=== PATIENT | female | born 1995 | race Caucasian/White ===

== ENCOUNTER → 2016-09-20 | Outpatient (CLI) | payer OTHER ==
[2016-09-20 12:14] LABS: ANION GAP 10 MEQ/L (8-16); BLOOD UREA NITROGEN 16 MG/DL (7-18); CALCIUM LEVEL 9.3 MG/DL (8.5-10.1); CARBON DIOXIDE LEVEL 24 MEQ/L (21-32); CHLORIDE LEVEL 103 MEQ/L (98-107); CHOLESTEROL LEVEL 199 MG/DL (<200); CREATININE FOR GFR 0.98 MG/DL (0.55-1.02); GLUCOSE, FASTING 103 MG/DL (70-105); POTASSIUM SERUM 4.1 MEQ/L (3.5-5.1); SODIUM LEVEL 137 MEQ/L (136-145); TRIGLYCERIDES LEVEL 230 MG/DL (<150)
== END ==
LOC: M LAB 10:34
PROVIDERS: ATTEND Internal Medicine Cardiovascular Disease
DX: I10 Essential (primary) hypertension (principal)

== ENCOUNTER 2016-11-02 19:43 | Emergency (ER) | payer OTHER ==
[~2016-11-02] VITALS: Ht 165.1 cm; Wt 99.8 kg
[2016-11-02] MEDS ORDERED: KETOROLAC 30 MG/ML VIAL (J1885) IM ONE (21:30)
[2016-11-02] MEDS ORDERED: METHOCARBAMOL 1,000 MG/10 ML VIAL (J2800) IM ONE (21:30)
[2016-11-02] MEDS ORDERED: LODI400T PO (22:10)
[2016-11-02] MEDS ORDERED: ROBA500T PO (22:10)
[2016-11-02 22:34] VITALS: BP 149/100
== END 2016-11-02 22:35 | disposition home or self-care (01) ==
LOC: M ED 20:50
DX: S39.012A Strain of muscle, fascia and tendon of lower back, initial encounter (principal); X50.9XXA Other and unspecified overexertion or strenuous movements or postures, initial encounter; Y92.129 Unspecified place in nursing home as the place of occurrence of the external cause; Y93.89 Activity, other specified; Y99.0 Civilian activity done for income or pay; Z79.899 Other long term (current) drug therapy
CPT/HCPCS: 96372; 99282; J1885; J2800

== ENCOUNTER 2016-11-08 11:36 | Emergency (ER) | payer OTHER ==
[~2016-11-08] VITALS: Ht 165.1 cm; Wt 99.8 kg
[~2016-11-08 11:36] MED LIST: LODI400T PO; ROBA500T PO
[2016-11-08] MEDS ORDERED: HYDR12.55 PO (11:49)
[2016-11-08] MEDS ORDERED: LISI-542 PO (11:49)
[2016-11-08] MEDS ORDERED: KETOROLAC 30 MG/ML VIAL (J1885) IM ONE (12:00)
[2016-11-08 13:17] VITALS: BP 123/83
[2016-11-08] MEDS ORDERED: HYDR-3713 PO (13:27)
--- NOTE | 2016-11-08 13:56 | REP ---
Lumbar spine series: Five views. History: Low back pain. Findings: Five views of the lumbar spine show preserved vertebral body heights and normal alignment. Disc spaces are maintained. Pedicles and posterior elements are intact. Psoas margins are symmetric. Sacrum and SI joints are unremarkable. Impression: Negative lumbar spine series: No change from March 09, 2016 prior study. Signed by Darnell Vallejo MD 11/08/2016 05:37 P
== END 2016-11-08 13:38 | disposition home or self-care (01) ==
LOC: M ED 12:16
DX: G89.29 Other chronic pain (principal); M54.5 Low back pain; X50.9XXD Other and unspecified overexertion or strenuous movements or postures, subsequent encounter; Y92.129 Unspecified place in nursing home as the place of occurrence of the external cause; Y93.89 Activity, other specified; Y99.0 Civilian activity done for income or pay; Z51.89 Encounter for other specified aftercare; E66.9 Obesity, unspecified; Z79.899 Other long term (current) drug therapy
CPT/HCPCS: 72110; 81001; 81025; 96372; 99282; J1885; J3360

== ENCOUNTER 2016-12-18 07:45 | Outpatient (RCR) | payer OTHER ==
[~2016-12-18 07:45] MED LIST changes: +HYDR-3713 PO; +HYDR12.55 PO; +LISI-542 PO
== END 2016-12-23 ==
LOC: M PT 07:45
PROVIDERS: ATTEND Orthopaedic Surgery
DX: Z51.89 Encounter for other specified aftercare (principal); M54.5 Low back pain

== ENCOUNTER → 2018-11-12 | Outpatient (CLI) | payer OTHER ==
[2018-11-12 09:00] LABS: CHOLESTEROL RISK RATIO 4.589 (<5)
[2018-11-13 08:06] LABS: LDL DIRECT 113 mg/dL (0-99)
== END ==
LOC: M LAB 08:06
PROVIDERS: ATTEND Internal Medicine Cardiovascular Disease
DX: I10 Essential (primary) hypertension (principal); E66.8 Other obesity; G47.33 Obstructive sleep apnea (adult) (pediatric)

== ENCOUNTER → 2018-12-15 | Outpatient (CLI) | payer OTHER ==
--- NOTE | 2018-12-18 21:02 | SLEEPCENT ---
DATE OF PROCEDURE: 12/15/2018 ORDERED BY: Devorah Landry Nocturnal polysomnography was performed for evaluation of sleep physiology in this patient with nonrestorative sleep and longstanding hypertension. 8 hours and 7 minutes of data were reviewed. There were 458 minutes of sleep identified. Sleep latency was short at 4.5 minutes. Rapid eye movement (REM) latency was mildly prolonged at 119 minutes. Sleep architecture was good with four REM cycles. Overall sleep efficiency 95%. The electrocardiogram showed a sinus rhythm with an average heart rate of 68 beats per minute. EEG with essentially normal waveforms for awake and sleep. There were no focal events identified. There were only two respiratory events identified of 10 seconds in duration or greater for an apnea-hypopnea index well within normal limits at 0.3. Snoring was noted over the course of study and respiratory related arousals occurred 2.1 times per hour. There was some limb activity noted. No trains of events were seen. Limb movement arousal index was at the upper limits of normal at 5.2, and there were no oxygen desaturations. IMPRESSION: Nocturnal polysomnography with snoring.
== END ==
LOC: M SLEEP 19:35
PROVIDERS: ATTEND Nurse Practitioner Adult Health
DX: R06.83 Snoring (principal)

== ENCOUNTER 2019-05-30 16:10 | Emergency (ER) | payer OTHER ==
[~2019-05-30] VITALS: Ht 162.6 cm; Wt 77.3 kg
[2019-05-30] MEDS ORDERED: ACETAMINOPHEN TAB 650MG DOSE (2X325MG) PO ONE (17:15)
[2019-05-30] MEDS ORDERED: NORCO, ANEXSIA 5/325MG TABLET (HYDROcodone/ACETAMINOPHEN) PO ONE (17:15)
[2019-05-30] MEDS ORDERED: NORC1TAB7 PO (17:24)
[2019-05-30 17:32] VITALS: BP 144/99
--- NOTE | 2019-05-31 07:57 | REP ---
Fifth digit right foot four views: There is a fracture of the fifth digit proximal phalange shaft. There is no dislocation. Mineralization and joint spaces are normal. There are no calcifications or foreign bodies. Electronically Signed by Mario Whitehead MD 05/31/2019 07:49 A
== END 2019-05-30 17:35 | disposition home or self-care (01) ==
LOC: M ED 16:10
DX: S92.514A Nondisplaced fracture of proximal phalanx of right lesser toe(s), initial encounter for closed fracture (principal); W22.01XA Walked into wall, initial encounter; Y92.099 Unspecified place in other non-institutional residence as the place of occurrence of the external cause; Y93.9 Activity, unspecified; Y99.9 Unspecified external cause status; Z79.899 Other long term (current) drug therapy

== ENCOUNTER → 2019-07-31 | Outpatient (CLI) | payer OTHER ==
[~2019-07-31] MED LIST changes: +NORC1TAB7 PO
--- NOTE | 2019-07-31 09:06 | REP ---
FIRST TRIMESTER ULTRASOUND: Real-time sonographic evaluation of the gravid uterus performed. There is a single intrauterine gestation with an estimated gestational age 8 weeks 4 days based on crown-rump length of 20 mm, EDC 03/07/2020. heart rate 169 beats per minute. There is no subchorionic hemorrhage. No maternal adnexal region abnormalities are seen. Electronically Signed by Mario Sinclair MD 07/31/2019 03:49 P
== END ==
LOC: M RAD 06:42
PROVIDERS: ATTEND Nurse Practitioner Family
DX: Z32.01 Encounter for pregnancy test, result positive (principal)

== ENCOUNTER → 2019-09-21 | Outpatient (REF) | payer OTHER ==
[2019-09-21 13:30] LABS: INFLUENZA A AMPLIFICATION NEGATIVE (NEGATIVE); INFLUENZA B AMPLIFICATION NEGATIVE (NEGATIVE)
== END ==
LOC: M LAB REF 12:19
PROVIDERS: ATTEND Physician Assistant Medical
DX: J11.1 Influenza due to unidentified influenza virus with other respiratory manifestations (principal)

== ENCOUNTER 2019-10-28 17:23 | Emergency (ER) | payer OTHER ==
[~2019-10-28] VITALS: Ht 162.6 cm; Wt 89.9 kg
--- NOTE | 2019-10-28 18:47 | REPVR ---
PROCEDURE INFORMATION: Exam: US , Transvaginal Exam date and time: 10/28/2019 6:31 PM Age: 24 years old Clinical indication: Pain; Other: Lt adnexa; Gestational age or lmp: 8wks; ; Additional info: Ecotopic rule out? TECHNIQUE: Imaging protocol: Real-time transvaginal obstetrical ultrasound of the maternal pelvis and a first trimester with image documentation. Transvaginal imaging was used for better evaluation of the fetus and adnexa. COMPARISON: No relevant prior studies available. FINDINGS: GESTATION: Gestation: Intrauterine gestation including yolk sac and pole unremarkable. Heart rate: 113 bpm BIOMETRY: Clute-Rump length: 6 weeks 5 days using crown-rump length of 8 mm versus 7 weeks 4 days using LMP. MATERNAL: Right adnexa: Hypervascular hypoechoic solid process right ovary consistent with a corpus luteum. Otherwise unremarkable. IMPRESSION: Unremarkable 1st trimester gestation at 6 weeks 5 days based on current ultrasound measurements. Detailed structural survey can be performed between 19-20 weeks if clinically desired. Electronically signed by: Bill Zabala On 10/28/2019 18:47:06 PM
[2019-10-28 18:53] LABS: BASO % 0.4 % (0.0-1.0); EOS # 0.1 10^3/uL (0.0-0.5); EOS % 1.4 % (0.0-3.0); HEMATOCRIT 39.3 % (36.0-47.0); HEMOGLOBIN 13.2 g/dl (12.0-15.5); LYMPH # 1.8 10^3/uL (1.5-5.0); LYMPH % 19.6 % (24.0-44.0); MEAN CORPUSCULAR HEMOGLOBIN 28.4 pg (27.0-33.0); MEAN CORPUSCULAR HGB CONC 33.6 g/dl (32.0-36.5); MEAN CORPUSCULAR VOLUME 84.5 fl (80.0-96.0); MONO # 0.6 10^3/uL (0.0-0.8); MONO % 5.9 % (0.0-5.0); NEUTROPHILS # 6.8 10^3/uL (1.5-8.5); NEUTROPHILS % 72.4 % (36.0-66.0); PLATELET COUNT, AUTOMATED 252 10^3/uL (150-450); RED BLOOD COUNT 4.65 10^6/uL (4.00-5.40); WHITE BLOOD COUNT 9.4 10^3/uL (4.0-10.0)
[2019-10-28 19:40] LABS: ALBUMIN 3.9 GM/DL (3.2-5.2); ALT/SGPT 31 U/L (12-78); BILIRUBIN,DIRECT 0.2 MG/DL (0.0-0.2); BILIRUBIN,TOTAL 0.4 MG/DL (0.2-1.0); BLOOD UREA NITROGEN 5 MG/DL (7-18); CALCIUM LEVEL 9.1 MG/DL (8.5-10.1); CARBON DIOXIDE LEVEL 25 MEQ/L (21-32); CHLORIDE LEVEL 106 MEQ/L (98-107); GLOMERULAR FILTRATION RATE > 60.0 (>60); GLUCOSE, FASTING 77 MG/DL (70-100); HCG, SERUM QUANTITATIVE 21185 MIU/ML; LIPASE 140 U/L (73-393); POTASSIUM SERUM 3.6 MEQ/L (3.5-5.1); SODIUM LEVEL 137 MEQ/L (136-145); TOTAL PROTEIN 7.4 GM/DL (6.4-8.2)
[2019-10-28 20:46] VITALS: BP 138/88
[2019-10-28 22:28] LABS: CHLAMYDIA DNA AMPLIFICATION NEGATIVE (NEGATIVE); GC DNA AMPLIFICATION NEGATIVE (NEGATIVE)
== END 2019-10-28 21:01 | disposition home or self-care (01) ==
LOC: M ED 17:23
DX: O26.891 Other specified pregnancy related conditions, first trimester (principal); R10.32 Left lower quadrant pain; O10.011 Pre-existing essential hypertension complicating pregnancy, first trimester; Z3A.01 Less than 8 weeks gestation of pregnancy; Z79.899 Other long term (current) drug therapy

== ENCOUNTER → 2020-01-16 | Outpatient (CLI) | payer OTHER ==
[2020-01-16 09:23] LABS: BASO # 0.1 10^3/uL (0.0-0.2); BASO % 0.9 % (0.0-1.0); EOS # 0.3 10^3/uL (0.0-0.5); EOS % 4.2 % (0.0-3.0); HEMATOCRIT 43.3 % (36.0-47.0); LYMPH # 2.8 10^3/uL (1.5-5.0); LYMPH % 35.3 % (24.0-44.0); MEAN CORPUSCULAR HEMOGLOBIN 30.2 pg (27.0-33.0); MEAN CORPUSCULAR HGB CONC 34.6 g/dl (32.0-36.5); MEAN CORPUSCULAR VOLUME 87.3 fl (80.0-96.0); MONO # 0.5 10^3/uL (0.0-0.8); MONO % 5.9 % (0.0-5.0); NEUTROPHILS # 4.2 10^3/uL (1.5-8.5); NEUTROPHILS % 53.6 % (36.0-66.0); PLATELET COUNT, AUTOMATED 249 10^3/uL (150-450); RED BLOOD COUNT 4.96 10^6/uL (4.00-5.40); WHITE BLOOD COUNT 7.8 10^3/uL (4.0-10.0)
[2020-01-16 09:45] LABS: ALT/SGPT 30 U/L (12-78); BLOOD UREA NITROGEN 9 MG/DL (7-18); CALCIUM LEVEL 9.3 MG/DL (8.5-10.1); CARBON DIOXIDE LEVEL 24 MEQ/L (21-32); CHLORIDE LEVEL 107 MEQ/L (98-107); CHOLESTEROL LEVEL 162 MG/DL (<200); CHOLESTEROL RISK RATIO 3.446 (<5); CPK CREATINE PHOSPHOKINASE 166 U/L (26-192); CREATININE FOR GFR 0.99 MG/DL (0.55-1.30); GLOMERULAR FILTRATION RATE > 60.0 (>60); GLUCOSE, FASTING 99 MG/DL (70-100); HDL CHOLESTEROL 47 MG/DL (>40); LDL CHOLESTEROL 89 MG/DL (<100); NON-HDL-C 115 MG/DL; POTASSIUM SERUM 3.8 MEQ/L (3.5-5.1); SODIUM LEVEL 140 MEQ/L (136-145); TRIGLYCERIDES LEVEL 129 MG/DL (<150)
== END ==
LOC: M LAB 08:47
PROVIDERS: ATTEND Internal Medicine Cardiovascular Disease
DX: I10 Essential (primary) hypertension (principal); E78.2 Mixed hyperlipidemia

== ENCOUNTER → 2020-07-05 | Outpatient (CLI) | payer OTHER ==
--- NOTE | 2020-07-05 10:42 | REP ---
INDICATION: IUD PLACEMENT. COMPARISON: Comparison pelvic sonography June 09, 2015.. TECHNIQUE: Transabdominal and transvaginal scanning were performed. FINDINGS: Uterine dimensions are normal at 9.0 x 3.6 x 5.0 cm. Endometrial echo is 0.4 cm thick and centrally placed. No free fluid is seen in the cul-de-sac. Visualized bladder charles are smooth. An IUD is seen in good position in the fundal endometrium. The right ovary has dimensions of 4.2 x 2.3 x 2.7 cm. It's Doppler flow is normal with a resistive index of 0.49. The left ovary dimensions are normal as well at 4.5 x 2.4 x 3.2 cm. It's Doppler flow was normal with resistive index of 0.44. IMPRESSION: Normal pelvic sonography. IUD in place. <Electronically signed by Wayne Vallejo > 07/05/20 [id number]
== END ==
LOC: M RAD 09:46
PROVIDERS: ATTEND Midwife
DX: R10.2 Pelvic and perineal pain (principal); Z30.430 Encounter for insertion of intrauterine contraceptive device

== ENCOUNTER 2020-08-05 11:31 | Emergency (ER) | payer OTHER ==
[~2020-08-05] VITALS: Ht 162.6 cm; Wt 84.1 kg
[2020-08-05 12:20] LABS: BASO # 0.1 10^3/uL (0.0-0.2); BASO % 0.8 % (0.0-1.0); EOS # 0.3 10^3/uL (0.0-0.5); EOS % 3.7 % (0.0-3.0); HEMOGLOBIN 12.9 g/dl (12.0-15.5); LYMPH % 25.8 % (24.0-44.0); MEAN CORPUSCULAR HEMOGLOBIN 29.9 pg (27.0-33.0); MEAN CORPUSCULAR HGB CONC 33.9 g/dl (32.0-36.5); MONO # 0.5 10^3/uL (0.0-0.8); MONO % 5.9 % (0.0-5.0); NEUTROPHILS # 4.9 10^3/uL (1.5-8.5); NEUTROPHILS % 63.3 % (36.0-66.0); PLATELET COUNT, AUTOMATED 223 10^3/uL (150-450); RED BLOOD COUNT 4.32 10^6/uL (4.00-5.40); WHITE BLOOD COUNT 7.7 10^3/uL (4.0-10.0)
[2020-08-05 12:28] LABS: BLOOD UREA NITROGEN 11 MG/DL (7-18); CALCIUM LEVEL 8.6 MG/DL (8.5-10.1); CARBON DIOXIDE LEVEL 27 MEQ/L (21-32); CHLORIDE LEVEL 107 MEQ/L (98-107); CREATININE FOR GFR 0.82 MG/DL (0.55-1.30); GLOMERULAR FILTRATION RATE > 60.0 (>60); GLUCOSE, FASTING 97 MG/DL (70-100); POTASSIUM SERUM 3.9 MEQ/L (3.5-5.1); SODIUM LEVEL 138 MEQ/L (136-145)
[2020-08-05 12:39] LABS: HCG, SERUM QUALITATIVE NEGATIVE (NEGATIVE)
--- NOTE | 2020-08-05 13:35 | REP ---
INDICATION: LLQ pain r/o ovarian cyst/torsion. COMPARISON: Pelvic ultrasound dated 07/05/2020. TECHNIQUE: Transabdominal, endovaginal and Doppler ultrasound of the pelvis. FINDINGS: The uterus is anteverted and normal size measuring 8.6 x 3.6 x 4.9 cm. The endometrium measures 8 mm and is not thickened. There is an IUD in satisfactory position within the endometrial canal. Right ovary: The right ovary is normal size measuring 4.1 x 2.9 x 3.3 cm. There is no dominant mass or cyst. There is vascular flow with the Doppler resistive index in the parenchymal arteries measuring 0.59. Left ovary: The left ovary is normal size measuring 2.9 x 2.4 x 2.6 cm. There is no dominant left ovarian mass or cyst. There is left ovarian vascular flow with the Doppler resistive index measuring 0.440 in the parenchymal arteries. No free fluid is identified. IMPRESSION: There is no dominant mass or cyst in the right or left ovaries. There is vascular flow in both ovaries. There is an IUD within the endometrial canal. <Electronically signed by Mario Whitehead > 08/05/20 [id number]
--- NOTE | 2020-08-05 14:25 | REP ---
INDICATION: hematuria, LLQ pain r/o stone COMPARISON: 09/16/2011. TECHNIQUE: CT Scan of the abdomen and pelvis was performed without intravenous contrast. Sagittal and coronal reconstruction images performed. FINDINGS: Lung bases: Unremarkable. Liver: Grossly unremarkable. Gallbladder: Unremarkable. Spleen: Grossly unremarkable.. Adrenals: There is a 2.6 cm right adrenal adenoma.. Pancreas: Grossly unremarkable.. Kidneys: No hydronephrosis or nephrolithiasis. Ureters demonstrate no dilatation or calculus. Small and large bowel: Grossly unremarkable.. Free fluid: None. Abdominal aorta: No aneurysm. Adenopathy: None. Appendix: Not inflamed. Osseous structures: Unremarkable. Pelvis: No mass. No bladder calculus seen. There is an IUD centrally in the uterus. IMPRESSION: No acute abnormalities detected. <Electronically signed by Mario Sinclair > 08/05/20 [id number]
[2020-08-05 15:39] VITALS: BP 144/102
== END 2020-08-05 15:41 | disposition home or self-care (01) ==
LOC: M ED 11:31
DX: R10.32 Left lower quadrant pain (principal); I10 Essential (primary) hypertension

== ENCOUNTER → 2021-08-11 | Outpatient (CLI) | payer OTHER ==
[~2021-08-11] MED LIST changes: -LISI-542 PO; +LISI5TAB11 PO
== END ==
LOC: M WHC 07:03
PROVIDERS: ATTEND Family Medicine
DX: N63.10 Unspecified lump in the right breast, unspecified quadrant (principal)

== ENCOUNTER → 2022-10-07 | Outpatient (REF) | payer OTHER ==
[2022-10-07 20:54] LABS: GC DNA AMPLIFICATION NEGATIVE (NEGATIVE)
== END ==
LOC: M WUC 18:50
PROVIDERS: ATTEND Physician Assistant
DX: Z11.3 Encounter for screening for infections with a predominantly sexual mode of transmission (principal); R30.0 Dysuria

== ENCOUNTER → 2022-10-08 | Outpatient (CLI) | payer OTHER | LOC: M LAB 06:27 | PROVIDERS: ATTEND Physician Assistant | DX: R30.0 Dysuria (principal); Z11.3 Encounter for screening for infections with a predominantly sexual mode of transmission ==

== ENCOUNTER → 2022-11-07 | Outpatient (REF) | payer OTHER | LOC: M LAB REF 16:14 | PROVIDERS: ATTEND Student in an Organized Health Care Education/Training Program | DX: J02.9 Acute pharyngitis, unspecified (principal) ==

== ENCOUNTER → 2022-11-07 | Outpatient (CLI) | payer OTHER | LOC: M WUC 12:53 | PROVIDERS: ATTEND Student in an Organized Health Care Education/Training Program | DX: Z11.3 Encounter for screening for infections with a predominantly sexual mode of transmission (principal) ==

== ENCOUNTER → 2023-04-28 | Outpatient (CLI) | payer OTHER | LOC: M RAD 10:28 | DX: M79.672 Pain in left foot (principal) ==

== ENCOUNTER → 2023-05-08 | Outpatient (CLI) | payer OTHER | LOC: M PLAIMG 13:27 | PROVIDERS: ATTEND Orthopaedic Surgery | DX: M79.673 Pain in unspecified foot (principal); M25.579 Pain in unspecified ankle and joints of unspecified foot ==

== ENCOUNTER → 2023-05-12 | Outpatient (REF) | payer OTHER ==
[2023-05-12 21:22] LABS: GC DNA AMPLIFICATION NEGATIVE (NEGATIVE)
== END ==
LOC: M LAB REF 18:59
PROVIDERS: ATTEND Physician Assistant
DX: R30.0 Dysuria (principal)

== ENCOUNTER → 2023-07-22 | Outpatient (REF) | payer OTHER ==
[2023-07-23 13:32] LABS: CHLAMYDIA DNA AMPLIFICATION NEGATIVE (NEGATIVE); GC DNA AMPLIFICATION NEGATIVE (NEGATIVE)
== END ==
LOC: M LAB REF 09:18
PROVIDERS: ATTEND Physician Assistant
DX: N76.0 Acute vaginitis (principal)

== ENCOUNTER → 2023-08-21 | Outpatient (CLI) | payer OTHER ==
[2023-08-21 10:34] LABS: HEMATOCRIT 40.3 % (36.0-47.0); HEMOGLOBIN 13.6 g/dl (12.0-15.5); MEAN CORPUSCULAR HGB CONC 33.7 g/dl (32.0-36.5); MEAN CORPUSCULAR VOLUME 88.8 fl (80.0-96.0); PLATELET COUNT, AUTOMATED 251 10^3/uL (150-450); RED BLOOD COUNT 4.54 10^6/uL (4.00-5.40); WHITE BLOOD COUNT 6.6 10^3/uL (4.0-10.0)
[2023-08-21 11:05] LABS: ALBUMIN 3.6 G/DL (3.2-5.2); ALKALINE PHOSPHATASE 55 U/L (46-116); ALT/SGPT 37 U/L (7.0-40); AST/SGOT 16 U/L (<34); BILIRUBIN,TOTAL 0.3 MG/DL (0.3-1.2); BLOOD UREA NITROGEN 6 MG/DL (9-23); CALCIUM LEVEL 8.7 MG/DL (8.5-10.1); CARBON DIOXIDE LEVEL 24 MMOL/L (20-31); CHLORIDE LEVEL 106 MMOL/L (98-107); CHOLESTEROL LEVEL 184 MG/DL (<200); CHOLESTEROL RISK RATIO 5.16 (<5); CPK CREATINE PHOSPHOKINASE 72 U/L (34-145); CREATININE FOR GFR 0.72 MG/DL (0.55-1.30); FREE T4 0.97 NG/DL (0.89-1.76); GLOMERULAR FILTRATION RATE > 60.0 (>60); GLUCOSE, FASTING 95 MG/DL (60-100); HDL CHOLESTEROL 35.6 MG/DL (>40); LDL CHOLESTEROL 89.8 MG/DL (<100); NON-HDL-C 148.4 MG/DL; SODIUM LEVEL 137 MMOL/L (136-145); THYROID STIMULATING HORMONE 3.092 uIU/ML (0.55-4.78); TOTAL PROTEIN 6.8 G/DL (5.7-8.2); TRIGLYCERIDES LEVEL 293 MG/DL (<150)
== END ==
LOC: M LAB 09:48
PROVIDERS: ATTEND Internal Medicine Cardiovascular Disease
DX: E78.2 Mixed hyperlipidemia (principal); I10 Essential (primary) hypertension; Z13.6 Encounter for screening for cardiovascular disorders; Z71.3 Dietary counseling and surveillance; Z82.49 Family history of ischemic heart disease and other diseases of the circulatory system; Z79.899 Other long term (current) drug therapy

== ENCOUNTER → 2023-10-04 | Outpatient (REF) | payer OTHER | LOC: M LAB REF 16:24 | PROVIDERS: ATTEND Physician Assistant | DX: J02.9 Acute pharyngitis, unspecified (principal); Z20.828 Contact with and (suspected) exposure to other viral communicable diseases ==

== ENCOUNTER → 2024-03-11 | Outpatient (CLI) | payer OTHER ==
[2024-03-11 09:47] LABS: HEMATOCRIT 41.2 % (36.0-47.0); HEMOGLOBIN 13.9 g/dl (12.0-15.5); MEAN CORPUSCULAR HEMOGLOBIN 29.7 pg (27.0-33.0); MEAN CORPUSCULAR HGB CONC 33.7 g/dl (32.0-36.5); PLATELET COUNT, AUTOMATED 257 10^3/uL (150-450); RED BLOOD COUNT 4.68 10^6/uL (4.00-5.40); WHITE BLOOD COUNT 6.3 10^3/uL (4.0-10.0)
[2024-03-11 10:20] LABS: ALBUMIN 3.8 G/DL (3.2-5.2); ALKALINE PHOSPHATASE 72 U/L (46-116); ALT/SGPT 29 U/L (7.0-40); AST/SGOT 12 U/L (<34); BILIRUBIN,TOTAL 0.3 MG/DL (0.3-1.2); BLOOD UREA NITROGEN 13 MG/DL (9-23); CALCIUM LEVEL 9.6 MG/DL (8.5-10.1); CARBON DIOXIDE LEVEL 26 MMOL/L (20-31); CHLORIDE LEVEL 106 MMOL/L (98-107); CREATININE FOR GFR 0.76 MG/DL (0.55-1.30); GLOMERULAR FILTRATION RATE > 60.0 (>60); GLUCOSE, FASTING 98 MG/DL (60-100); POTASSIUM SERUM 4.2 MMOL/L (3.5-5.1); SODIUM LEVEL 138 MMOL/L (136-145)
[2024-03-15 17:48] LABS: METANEPHRINE PLASMA < 25 pg/mL (<=57); NORMETANEPHRINE PLASMA 36 pg/mL (<=148); TOTAL FREE 36 pg/mL (<=205)
[2024-03-17 10:17] LABS: DEHYDROEPIANDROSTERONE UNCONJ 252 ng/dL (113-1360)
[2024-03-18 13:27] LABS: ALDOS/RENIN RATIO 0.7 Ratio (0.9-28.9); ALDOSTERONE LC 8 ng/dL; RENIN ACTIVITY 10.97 ng/mL/h (0.25-5.82)
== END ==
LOC: M LAB 08:51
PROVIDERS: ATTEND Physician Assistant
DX: I10 Essential (primary) hypertension (principal)

== ENCOUNTER → 2025-08-03 | Outpatient (CLI) | payer OTHER ==
[2025-08-03 09:41] LABS: BASO # 0.1 10^3/uL (0.0-0.2); BASO % 0.8 % (0.0-1.0); EOS # 0.3 10^3/uL (0.0-0.5); EOS % 3.6 % (0.0-3.0); LYMPH # 2.2 10^3/uL (1.5-5.0); LYMPH % 28.3 % (24.0-44.0); MONO # 0.4 10^3/uL (0.0-0.8); MONO % 4.7 % (2.0-8.0); NEUTROPHILS # 4.8 10^3/uL (1.5-8.5); NEUTROPHILS % 62.3 % (36.0-66.0); PLATELET COUNT, AUTOMATED 248 10^3/uL (150-450)
[2025-08-03 10:11] LABS: ALT/SGPT 45 U/L (7.0-40); AST/SGOT 29 U/L (<34); CALCIUM LEVEL 9.1 MG/DL (8.5-10.1); CARBON DIOXIDE LEVEL 25 MMOL/L (20-31); CHLORIDE LEVEL 106 MMOL/L (98-107); CHOLESTEROL LEVEL 186 MG/DL (<200); CHOLESTEROL RISK RATIO 4.88 (<5); CREATININE FOR GFR 0.87 MG/DL (0.55-1.30); GLOMERULAR FILTRATION RATE > 90.0 (>60); LDL CHOLESTEROL 117.5 MG/DL (<100); NON-HDL-C 147.9 MG/DL; POTASSIUM SERUM 4.6 MMOL/L (3.5-5.1); SODIUM LEVEL 136 MMOL/L (136-145); TRIGLYCERIDES LEVEL 152 MG/DL (<150)
[2025-08-03 10:12] LABS: FREE T4 1.15 NG/DL (0.89-1.76)
== END ==
LOC: M LAB 07:18
PROVIDERS: ATTEND Nurse Practitioner Adult Health
DX: I10 Essential (primary) hypertension (principal)